=== PATIENT | male | born 1990 | race African-American/Black ===

== ENCOUNTER 2021-08-24 20:13 | Emergency (ER) | payer MEDICAID ==
[~2021-08-24] VITALS: Ht 188 cm; Wt 163.0 kg
[2021-08-24] MEDS ORDERED: MORPHINE SULFATE 4 MG/ML CPJ (NOT FOR IM USE) IV STA (22:52)
[2021-08-24] MEDS ORDERED: ONDANSETRON HCL 4MG/2ML INJ IV STA (22:52)
[2021-08-24] MEDS ORDERED: SODIUM CHLORIDE 0.9% 1,000 ML IV ONE (23:00)
[2021-08-24 23:31] LABS: BASOPHILS % 0.6 % (0.0-2.0); HEMATOCRIT. 42.9 % (42.0-52.0); HEMOGLOBIN. 14.2 g/dL (14.0-18.0); LYMPHOCYTES % 22.3 % (20.0-50.0); MEAN CORPUSCULAR HEMOGLOBIN 27.8 pg (28.0-32.0); MEAN CORPUSCULAR VOLUME 84.2 fL (80.0-94.0); MEAN PLATELET VOLUME 8.6 fl (7.4-10.4); MONOCYTES % 14.9 % (2.0-8.0); NEUTROPHILS % 61.2 % (40.0-76.0); PLATELET 260 x1000/uL (130-400); RED CELL DISTRIBUTION WIDTH 13.7 % (11.6-14.6)
[2021-08-24 23:39] LABS: CHLORIDE 105 mEq/L (98-107)
[2021-08-25 02:35] VITALS: BP 128/77
[2021-08-25] MEDS ORDERED: FAMOTIDINE 20MG/2ML VIAL IV STA (03:09)
[2021-08-25] MEDS ORDERED: MAGNESIUM/ALUMINUM HYDROXIDE/SIMETHICONE 30ML UDC PO STA (03:09)
[2021-08-25] MEDS ORDERED: FAMO-135 MT (03:10)
== END 2021-08-25 04:02 | disposition home or self-care (01) ==
LOC: ER 20:13
DX: R10.11 Right upper quadrant pain (principal); K76.0 Fatty (change of) liver, not elsewhere classified; F10.10 Alcohol abuse, uncomplicated; F14.10 Cocaine abuse, uncomplicated; Y90.9 Presence of alcohol in blood, level not specified
CPT/HCPCS: 36415; 71045; 74176; 76705; 80053; 82248; 82270; 83690; 84484; 85025; 93005; 99285; J2270; J2405; J7030; 80076